=== PATIENT | female | born 1945 | race Two or more races ===

== ENCOUNTER 2019-03-28 16:49 | Inpatient (IN) | payer OTHER ==
[~2019-03-28] VITALS: Ht 142.2 cm; Wt 64.9 kg
[2019-03-28] MEDS ORDERED: TOPROL XL50 M1 (17:09)
[2019-03-28] MEDS ORDERED: ATACAND16 MG (17:10)
[2019-03-28] MEDS ORDERED: ZOCOR40 MG (17:10)
--- NOTE | 2019-03-28 17:19 | NUR ---
SE RECIBE PTE ALERTA Y ORIENTADA X3,REFIERE QUE FERMIN Y HOY GUERRA TENIOD EPISODIO DE MAREO,REFIERE DOLOR EN EL ESPALDA ,PECHO LADO DERECHO,CEFALEA.
--- NOTE | 2019-03-28 20:33 | NUR ---
SE ORIENTA AL PACIENTE SOBRE MUESTRAS A SER COLECTADAS INEZ ORDEN MEDICA Y PACIENTE REFIERE ENTENDER. SER COLECTAN LAS MUESTRAS UTILIZANDO MEDIDAS ASEPT. Y SE ENVIAN AL LABORATORIO.
--- NOTE | 2019-03-28 22:50 | NUR ---
SE REALIZAN LAS VICKIE MUESTRAS DE TROPONINA X HORA Y SE ENVIAN AL LABORATORIO. PACIENTE EN ESPERA A RESULTADOS DE LABORATORIO Y REEVALUACION DEL MEDICO.
--- NOTE | 2019-03-29 07:14 | NUR ---
SE RECIBE PTE LA CUAL, SE ENCUENTRA EN CAMA CON BARANDAS ELEVADAS Y ID BAND. LA MISMA PRESENTA AREA DE VENOPUNCION PATENTE Y WILMA DE EDEMA. LA MISMA SE ENCUENTRA PEND A CONSULTA CON DR. CARROLL.
--- NOTE | 2019-03-29 15:11 | NUR ---
SE RECIBE PTE DEL TURNO AMNTERIOR, ALERTA Y ORIENTADA X 3 ESFERAS, EN CAMA NIVEL MAS BAJO, [place] DE IDENTIFICACION Y BARANDAS ELECADAS POR PRECAUCION. EN COMPANIA DE FAMILIAR. SE OBASERVA CON BUEN PATRON RESPIRATORIO. H/L PATENTE Y WILMA DE EDEMA O ERITEMA, PENDIENTE A CONSULTA CON DR Osmani CARROLL.
== END 2019-03-31 13:42 | disposition home or self-care (01) | DRG 69 ==
LOC: ER 16:49 → MEDJ 03-29 15:45
PROVIDERS: ADMIT Internal Medicine
PROC: B345ZZZ Ultrasonography of Bilateral Common Carotid Arteries (ICD-10-PCS; principal; 2019-03-29)
PROC: B348ZZZ Ultrasonography of Bilateral Internal Carotid Arteries (ICD-10-PCS; 2019-03-29)
PROC: B030ZZZ Magnetic Resonance Imaging (MRI) of Brain (ICD-10-PCS; 2019-03-29)
PROC: B246ZZZ Ultrasonography of Right and Left Heart (ICD-10-PCS; 2019-03-29)
PROC: 4A12X4Z Monitoring of Cardiac Electrical Activity, External Approach (ICD-10-PCS; 2019-03-30)
DX: I67.81 Acute cerebrovascular insufficiency (principal); G45.8 Other transient cerebral ischemic attacks and related syndromes; R55 Syncope and collapse; I08.1 Rheumatic disorders of both mitral and tricuspid valves; E78.49 Other hyperlipidemia
CPT/HCPCS: 70551

== ENCOUNTER 2021-04-17 16:12 | Emergency (ER) | payer OTHER ==
[~2021-04-17] VITALS: Ht 149.9 cm; Wt 65.8 kg
[~2021-04-17 16:12] MED LIST: ATACAND16 MG; TOPROL XL50 M1; ZOCOR40 MG
[2021-04-17] MEDS ORDERED: BENADRYL ALLERG25 MG PO (17:58)
== END 2021-04-17 18:43 | disposition home or self-care (01) ==
LOC: ER 16:12
DX: L27.1 Localized skin eruption due to drugs and medicaments taken internally (principal); T50.B95A Adverse effect of other viral vaccines, initial encounter; Y92.89 Other specified places as the place of occurrence of the external cause